=== PATIENT | male | born 1960 | race Caucasian/White ===

== ENCOUNTER 2021-04-19 11:46 | Outpatient (CLI) | payer OTHER | END 2021-04-19 11:47 | disposition home or self-care (01) | LOC: CSHCT 11:46 | PROVIDERS: ATTEND Surgery | DX: D32.9 Benign neoplasm of meninges, unspecified (principal); D32.0 Benign neoplasm of cerebral meninges | CPT/HCPCS: 70496; 70553; 82565 ==